=== PATIENT | male | born 1995 | race Caucasian/White ===

== ENCOUNTER 2017-04-18 11:58 | Inpatient (IN) | payer OTHER ==
[~2017-04-18] VITALS: Ht 180.3 cm; Wt 95.3 kg
[2017-04-18 12:56] LABS: BASOPHILS 0.1 % (0-2); EOSINOPHILS 0.6 % (0-7); HEMATOCRIT 47.3 % (42.0-54.0); HEMOGLOBIN 16.9 g/dL (13.5-17.5); IMMATURE GRANULOCYTES 0.3 % (0-5); LYMPHOCYTES 15.1 % (15-50); MCH 31.8 pg (26.0-34.0); MCHC 35.7 g/dL (31.0-37.0); MCV 89.1 fL (80.0-100.0); MEAN PLATELET VOLUME 10.5 fL (7.4-10.4); MONOCYTES 9.3 % (2-11); NEUTROPHILS 74.6 % (40-80); PLATELET COUNT 285 10x3/uL (130-400); RBC 5.31 10x6/uL (4.20-6.10); RDW 12.2 % (11.5-14.5); WBC 11.7 10x3/uL (4.8-10.8)
[2017-04-18 13:09] LABS: ALKALINE PHOSPHATASE 55 U/L (46-116); ALT (SGPT) 48 U/L (10-68); AMYLASE - SERUM 62 U/L (25-115); BILIRUBIN - TOTAL 1.09 mg/dL (0.2-1.3); CALC OSMOLALITY 276 mosm/kg (275-300); CALCIUM 9.3 mg/dL (8.5-10.1); CARBON DIOXIDE 25.8 mmol/L (21.0-32.0); CHLORIDE - SERUM 104 mmol/L (98-107); GLUCOSE 102 mg/dL (74-106); LIPASE 196 U/L (73-393); POTASSIUM - SERUM 4.1 mmol/L (3.5-5.1); PROTEIN - SERUM 7.6 g/dL (6.4-8.2); SODIUM 139 mmol/L (136-145); UREA NITROGEN 9 mg/dL (7-18); eGFR NON AFRICAN AMERICAN > 90 mL/min (90-120)
[2017-04-18 15:38] LABS: APPEARANCE CLEAR (CLEAR); BILIRUBIN 1+ (NEGATIVE); COLOR YELLOW (YELLOW); GLUCOSE NEGATIVE (NEGATIVE); KETONE NEGATIVE (NEGATIVE); LEUKOCYTE ESTERASE NEGATIVE (NEGATIVE); NITRITE NEGATIVE (NEGATIVE); PROTEIN NEGATIVE (NEGATIVE); SPECIFIC GRAVITY 1.015 (1.005-1.020); UROBILINOGEN NORMAL (NORMAL)
[2017-04-18 15:45] LABS: UDS - AMPHET NEGATIVE QUAL (NEGATIVE); UDS - BARB NEGATIVE QUAL (NEGATIVE); UDS - BENZO NEGATIVE QUAL (NEGATIVE); UDS - COCAINE NEGATIVE QUAL (NEGATIVE); UDS - METH NEGATIVE QUAL (NEGATIVE); UDS - OPIATE NEGATIVE QUAL (NEGATIVE); UDS - PCP NEGATIVE QUAL (NEGATIVE); UDS - THC NEGATIVE QUAL (NEGATIVE)
[2017-04-18 18:32] VITALS: BP 148/78; BMI 29.3
--- NOTE | 2017-04-18 19:30 | NUR ---
PT SITTING UP IN BED, ASSESSMENT COMPLETED, NGT TO R NARE AT LIT, L AC IV IN FUSING, NO ACUTE DISTRESS NOTED, VISITOR AT BEDSIDE, SR'S UP, CL IN REACH, WILL MONITOR
[2017-04-18 20:00] VITALS: BP 136/72
--- NOTE | 2017-04-18 22:38 | NUR ---
PT RETURNED FROM VQ SCAN, NO ACUTE DISTRESS NOTED, FALL PRECAUTIONS IN PLACE, CL IN REACH
--- NOTE | 2017-04-18 23:34 | NUR ---
PRN ZOFRAN GIVEN PER REQUEST, YOUSUF WELL, NG TUBE SECURED WITH SILK TAPE, DENIES FURTHER NEEDS, CL IN REACH, VISITOR IN ROOM
[2017-04-18 23:37] VITALS: BP 133/73
--- NOTE | 2017-04-19 01:22 | NUR ---
RESTING WITH EYES CLOSED, RESP WITH EASE, HOB ELEVATED, FALL PRECAUTIONS IN PLACE, CL IN REACH
[2017-04-19 03:54] VITALS: BP 128/76
[2017-04-19 07:33] LABS: BASOPHILS 0.1 % (0-2); EOSINOPHILS 0.4 % (0-7); HEMATOCRIT 43.7 % (42.0-54.0); HEMOGLOBIN 15.3 g/dL (13.5-17.5); IMMATURE GRANULOCYTES 0.3 % (0-5); LYMPHOCYTES 14.1 % (15-50); MCH 31.7 pg (26.0-34.0); MCV 90.7 fL (80.0-100.0); MEAN PLATELET VOLUME 10.6 fL (7.4-10.4); MONOCYTES 9.8 % (2-11); NEUTROPHILS 75.3 % (40-80); PLATELET COUNT 256 10x3/uL (130-400); RBC 4.82 10x6/uL (4.20-6.10); RDW 12.2 % (11.5-14.5)
[2017-04-19 07:45] LABS: ALBUMIN 3.5 g/dL (3.4-5.0); ALKALINE PHOSPHATASE 45 U/L (46-116); ALT (SGPT) 42 U/L (10-68); BILIRUBIN - TOTAL 1.19 mg/dL (0.2-1.3); CALC OSMOLALITY 282 mosm/kg (275-300); CALCIUM 8.7 mg/dL (8.5-10.1); CARBON DIOXIDE 27.8 mmol/L (21.0-32.0); CHLORIDE - SERUM 107 mmol/L (98-107); GLUCOSE 93 mg/dL (74-106); MAGNESIUM - SERUM 1.7 mg/dL (1.8-2.4); PHOSPHOROUS 3.2 mg/dL (2.5-4.9); POTASSIUM - SERUM 4.2 mmol/L (3.5-5.1); PROTEIN - SERUM 6.8 g/dL (6.4-8.2); SODIUM 143 mmol/L (136-145); eGFR NON AFRICAN AMERICAN > 90 mL/min (90-120)
[2017-04-19 07:46] LABS: UREA NITROGEN 6 mg/dL (7-18)
--- NOTE | 2017-04-19 07:50 | NUR ---
AWAKE AND ALERT AT THIS TIME. NG TUBE TO RIGHT NARE PATENT WITH DARK, BROWN/BLACK DRAINAGE. DENIES NAUSEA AT THIS TIME. C/O THROAT BEING SORE D/T NG TUBE. DENIES FURTHER NEEDS AT THIS TIME. ASSESSMENT PERFORMED PER FLOWSHEET. CALL LIGHT IN REACH, WILL CONTINUE WITH PLAN OF CARE.
--- NOTE | 2017-04-19 08:34 | NUR ---
PT CONTINUES TO VOMIT AROUND NG TUBE AT THIS TIME. NG TUBE CHECKED FOR PLACEMENT WITH 20ML AIR ADMINISTRATION WHICH WAS ASCULTATED IN THE STOMACH. NG TUBE SECURED AND REMAINS AT BEDSIDE. PRN ZOFRAN ADMINISTERED FOR NAUSEA.
[2017-04-19 08:59] VITALS: BP 124/64
--- NOTE | 2017-04-19 11:00 | NUR ---
PT VOICED THAT HE HAD NOT VOIDED SINCE 1AM. BLADDER SCAN REVEALED 932 ML OF URINE IN THE BLADDER. NG TUBE CLAMPED AND PT ASSISTED UP TO STANDING POSITION IN BATHROOM TO ATTEMPT VOID. PT VOIDED 925ML OF DARK, YELLOW URINE INTO URINAL AT THIS TIME. ASSISTED BACK TO BED WITH CALL LIGHT IN REACH. WILL CONTINUE WITH PLAN OF CARE.
[2017-04-19 13:24] VITALS: BP 126/64
[2017-04-19 15:34] VITALS: BP 138/65
--- NOTE | 2017-04-19 19:35 | NUR ---
RECIEVED SHIFT REPORT. PT IS LING IN BED. ALERT AND ORIENTED AND ABLE TO VERBALIZE NEEDS. IV IS PATENT AND FLUIDS ARE RUNNING PER ORDER. NGT TO RIGHT NARE PATENT AND CONNECTED TO LIWS. PT IS AMBULATORY WITH ASSISTANCE. 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 NO NEEDS ARE VERBALIZED AT THIS TIME. WILL CONTINUE TO MONITOR. VISITORS AT THE BEDSIDE. SIDE RAILS ARE UP X 2. BED IS IN LOWEST POSITION. CALL LIGHT IS WITHIN REACH.
[2017-04-19 20:00] VITALS: BP 131/75
--- NOTE | 2017-04-19 21:07 | NUR ---
SHIFT ASSESSMENT COMPLETED. PT STATUS REMAINS UNCHANGED FROM PREVIOUS. WILL MONITOR. VISITORS AT BEDSIDE. SIDE RAILS X 2. BED LOW. CALL LIGHT IN REACH.
[2017-04-20 04:00] VITALS: BP 136/70
[2017-04-20 04:39] LABS: BASOPHILS 0.1 % (0-2); EOSINOPHILS 1.5 % (0-7); HEMATOCRIT 41.9 % (42.0-54.0); HEMOGLOBIN 14.7 g/dL (13.5-17.5); IMMATURE GRANULOCYTES 0.2 % (0-5); LYMPHOCYTES 18.1 % (15-50); MCH 31.7 pg (26.0-34.0); MCHC 35.1 g/dL (31.0-37.0); MCV 90.3 fL (80.0-100.0); MEAN PLATELET VOLUME 10.2 fL (7.4-10.4); MONOCYTES 11.1 % (2-11); PLATELET COUNT 238 10x3/uL (130-400); RBC 4.64 10x6/uL (4.20-6.10); RDW 12.1 % (11.5-14.5); WBC 10.1 10x3/uL (4.8-10.8)
[2017-04-20 05:02] LABS: ALBUMIN 3.5 g/dL (3.4-5.0); ALKALINE PHOSPHATASE 40 U/L (46-116); ALT (SGPT) 37 U/L (10-68); CALCIUM 8.5 mg/dL (8.5-10.1); CARBON DIOXIDE 25.4 mmol/L (21.0-32.0); CHLORIDE - SERUM 105 mmol/L (98-107); GLUCOSE 80 mg/dL (74-106); PROTEIN - SERUM 6.8 g/dL (6.4-8.2); SODIUM 141 mmol/L (136-145)
[2017-04-20 05:03] LABS: CALC OSMOLALITY 276 mosm/kg (275-300); CREATININE - SERUM 0.7 mg/dL (0.6-1.3); POTASSIUM - SERUM 3.4 mmol/L (3.5-5.1); UREA NITROGEN 4 mg/dL (7-18); eGFR NON AFRICAN AMERICAN > 90 mL/min (90-120)
[2017-04-20 07:45] VITALS: BP 135/77
--- NOTE | 2017-04-20 07:45 | NUR ---
PT AOX4 RESP EVEN AND NONLABORED PT DENIES NEEDS AT THIS TIME IV TO LEFT AC PATENT AND INTACT AT THIS TIME SRX2 BED AT LOWEST SETTING CALL LIGHT WITHIN REACH WILL CONTINUE TO MONITOR
[2017-04-20 11:38] VITALS: BP 144/76
--- NOTE | 2017-04-20 13:08 | NUR ---
Patient Name: LIZZY FERRELL Admission Status: ER Accout number: [id number] Admission Date: 04-18-2017 : 1995 Admission Diagnosis: Attending: ALEXANDER Current LOS: 2 Anticipated DC Date: 04-22-2017 Planned Disposition: Home [facility] Discharge Planning Comments: CM MET WITH PATIENT REGARDING D/C NEEDS AND PLANS. PATIENT STATED HE LIVES WITH HIS (GRIFFIN) AND SHE WILL DRIVE HIM HOME AT DISCHARGE. PATIENT HAS NO STEPS OR STAIRS AT HIS HOME. PATIENT STATED HE IS INDEPENDENT WITH HIS CARE AND HAS NO DME AT HOME. PATIENTS PCP IS DR. PRICE AND PHARMACY IS [facility] IN [place]. PATIENT HAS NEVER HAD HOME HEALTH AND DOES NOT WANT IT AT THIS TIME. CM WILL CONTINUE TO FOLLOW PATIENT WITH D/C NEEDS AND PLANS. PCP DR. PRICE [facility] IN [place]- [phone] GRIFFIN () [phone] [employer]ning Machine Feeder: Maira Awan Is the patient Alert and Oriented? Yes 0 * How many steps to enter\exit or inside your home? 0 0 * PCP DR. PRICE 0 * Pharmacy [facility] IN [place] 0 * Preadmission Environment Home with Family 0 * ADLs Independent 0 * Equipment None 0 * List name and contact numbers for known caregivers / representatives who currently or will assist patient after discharge: GRIFFIN () [phone] 0 * Community resources currently utilized None 0 * Additional services required to return to the preadmission environment? Yes 0 * Can the patient safely return to the preadmission environment? Yes 0 * Has this patient been hospitalized within the prior 30 days at any hospital? No 0 Grand Total: 0
[2017-04-20 13:29] VITALS: Ht 180.3 cm; Wt 95.3 kg
[2017-04-20 15:46] VITALS: BP 121/54
--- NOTE | 2017-04-20 17:01 | NUR ---
NGT DISCONTINUED WITHOUT DIFFICULTY AT THIS TIME PT TOLERATED WITHOUT COMPLAINTS AT THIS TIME
[2017-04-20 18:19] LABS: ERYTHROCYTE SEDIMENTATION RATE 1 mm/hr (0-15)
[2017-04-20 20:00] VITALS: BP 118/60
[2017-04-21] VITALS: BP 114/62
--- NOTE | 2017-04-21 02:00 | NUR ---
PATIENT DRANK HALF OF THE JUG OF GOLYTLEY PATIENT STATED "I KNOW I NEED TO DRINK IT BUT I JUST CANNOT GET ANYMORE DOWN. MY STOOL IS NOT CLEAR BUT IT IS MORE CLEAR THEN WHEN I STARTED."
[2017-04-21 04:00] VITALS: BP 108/80
[2017-04-21 04:58] LABS: BASOPHILS 0 % (0-2); EOSINOPHILS 0 % (0-7); HEMATOCRIT 39.4 % (42.0-54.0); HEMOGLOBIN 14.1 g/dL (13.5-17.5); IMMATURE GRANULOCYTES 0.2 % (0-5); LYMPHOCYTES 4.7 % (15-50); MCH 31.6 pg (26.0-34.0); MCHC 35.8 g/dL (31.0-37.0); MEAN PLATELET VOLUME 10.8 fL (7.4-10.4); NEUTROPHILS 93.1 % (40-80); PLATELET COUNT 285 10x3/uL (130-400); RBC 4.46 10x6/uL (4.20-6.10); RDW 11.9 % (11.5-14.5); WBC 12.3 10x3/uL (4.8-10.8)
[2017-04-21 05:02] LABS: MCV 88.3 fL (80.0-100.0)
[2017-04-21 05:20] LABS: ALBUMIN 3.4 g/dL (3.4-5.0); ALKALINE PHOSPHATASE 45 U/L (46-116); BILIRUBIN - TOTAL 1.19 mg/dL (0.2-1.3); CARBON DIOXIDE 24.8 mmol/L (21.0-32.0); CHLORIDE - SERUM 107 mmol/L (98-107); CREATININE - SERUM 0.8 mg/dL (0.6-1.3); POTASSIUM - SERUM 3.7 mmol/L (3.5-5.1); PROTEIN - SERUM 6.9 g/dL (6.4-8.2); SODIUM 142 mmol/L (136-145); eGFR NON AFRICAN AMERICAN > 90 mL/min (90-120)
[2017-04-21 05:23] LABS: ALT (SGPT) 96 U/L (10-68); CALC OSMOLALITY 283 mosm/kg (275-300); GLUCOSE 150 mg/dL (74-106); UREA NITROGEN 7 mg/dL (7-18)
[2017-04-21] MEDS ORDERED: ZOLOFT50 MG PO (06:18)
[2017-04-21 06:33] LABS: ERYTHROCYTE SEDIMENTATION RATE 20 mm/hr (0-15)
[2017-04-21 09:05] VITALS: BP 114/68
[2017-04-21 11:37] VITALS: BP 118/70
--- NOTE | 2017-04-21 19:45 | NUR ---
PATIENT IS IN BED, FAMILY AND FRIENDS AT BEDSIDE. PATIENT HAD SMALL, 30ML OF LIQUID BOWEL MOVEMENT PRESENT IN BEDPAN. THE STOOL IS LIGHT BROWN AND APPEARS TO BE MUCOUSY. PATIENT DENIES NEEDS AT THIS TIME. NO SIGNS OF DISTRESS NOTED. BED IN LOWEST POSITION, CALL LIGHT IN REACH. BED RIALS UP X'S 2.
[2017-04-21 20:00] VITALS: BP 112/59
[2017-04-22] VITALS: BP 98/48
[2017-04-22 04:00] VITALS: BP 102/66
[2017-04-22 05:10] LABS: BASOPHILS 0 % (0-2); EOSINOPHILS 0 % (0-7); HEMATOCRIT 37.9 % (42.0-54.0); HEMOGLOBIN 13.4 g/dL (13.5-17.5); IMMATURE GRANULOCYTES 0.5 % (0-5); LYMPHOCYTES 4.5 % (15-50); MCH 31.4 pg (26.0-34.0); MCHC 35.4 g/dL (31.0-37.0); MCV 88.8 fL (80.0-100.0); MEAN PLATELET VOLUME 10.6 fL (7.4-10.4); MONOCYTES 5.4 % (2-11); NEUTROPHILS 89.6 % (40-80); PLATELET COUNT 277 10x3/uL (130-400); RBC 4.27 10x6/uL (4.20-6.10)
[2017-04-22 05:12] LABS: WBC 15.7 10x3/uL (4.8-10.8)
[2017-04-22 05:17] LABS: CALC OSMOLALITY 290 mosm/kg (275-300); CALCIUM 8.6 mg/dL (8.5-10.1); CHLORIDE - SERUM 111 mmol/L (98-107); CREATININE - SERUM 0.7 mg/dL (0.6-1.3); GLUCOSE 142 mg/dL (74-106); POTASSIUM - SERUM 3.8 mmol/L (3.5-5.1); SODIUM 146 mmol/L (136-145); UREA NITROGEN 8 mg/dL (7-18); eGFR NON AFRICAN AMERICAN > 90 mL/min (90-120)
[2017-04-22] MEDS ORDERED: CIPRO500 MG PO (07:09)
[2017-04-22] MEDS ORDERED: FLAGYL500 MG PO (07:10)
[2017-04-22] MEDS ORDERED: MEDROL DOSE PACK4 MG PO (07:11)
--- NOTE | 2017-04-22 07:35 | NUR ---
PT AOX4 RESP EVEN AND NONLABORED PT DENIES NEEDS AT THIS TIME IV TO LEFT HAND PATENT AND INTACT AT THIS TIME SRX2 BED AT LOWEST SETTING CALL LIGHT WITHIN REACH WILL CONTINUE TO MONITOR
[2017-04-22 08:10] VITALS: BP 128/62
--- NOTE | 2017-04-22 08:29 | NUR ---
CM REASSESSMENT NOTE: PATIENT IS DISCHARGING HOME TODAY. PATIENT DID NOT WANT HOME HEALTH AND HAD NO OTHER NEEDS AT THIS TIME. PATIENTS IS DRIVING HIM HOME AT DISCHARGE.
--- NOTE | 2017-04-22 10:05 | NUR ---
IV DISCONTINUED WITH CATHETER INTACT AT THIS TIME PT GIVEN DISCHARGE INSTRUCTIONS AT THIS TIME
--- NOTE | 2017-04-22 10:29 | NUR ---
PT AND SPOUSE AMBULATED TO FRONT ENTRANCE AND LEFT VIA WHEELCHAIR AT THIS TIME
--- NOTE | 2017-04-22 16:52 | OP ---
PATIENT NAME: LIZZY FERRELL MEDICAL RECORD: [id number] :[birth year] LOCATION:[id number] ADMISSION DATE:04/18/17 SURGEON: TA DICK DO OPERATION DATE: 04/21/17 PROCEDURE: Colonoscopy with snare polypectomy and biopsies. INDICATION: Abnormal imaging consisting of thickening of the ileum to the terminal ileum on CT scan. SCOPE: Olympus video pediatric colonoscope. MEDICATIONS: Propofol 600 milligrams IV per anesthesia. WITHDRAWAL TIME: Greater than 15 minutes. ESTIMATED BLOOD LOSS: Minimal. COMPLICATIONS: None. FINDINGS: Informed consent was given. The patient was made comfortable with the above medication. After reaching an adequate level of sedation by slow IV push, the patient was placed on his left side. A digital rectal examination was performed and was normal. The endoscope was then advanced under direct visualization through the rectum to the ileum with advancement of the endoscope approximately 30-40 centimeters into the ileum. The scope was slowly withdrawn, and the mucosa was carefully examined. In the ileum, there was some granularity and erythema consistent with possible ileitis. There were no ulcerations, erosions, changes in vascular pattern, or other changes consistent with Crohn's disease or any other pathology visualized within the ileum. Biopsies were taken with cold forceps to submit for histology. In the ascending colon, there was a single benign appearing sessile polyp measuring approximately 4-5 millimeters in diameter which was removed using a snare cautery polypectomy. Retroflexion was performed in the rectum with a normal appearing mucosal pattern without hemorrhoids. There were no other findings on this examination. The scope was completely withdrawn from the patient. The patient tolerated the procedure well, and there were no complications. IMPRESSIONS: 1. Granularity and erythema in the ileum consistent with possible ileitis, biopsies taken. 2. A single, benign appearing, sessile polyp in the ascending colon which was removed using snare cautery. PLAN/RECOMMENDATIONS: 1. Return to floor. 2. Continue current medications. 3. Resume regular diet. 4. Await biomarker panel to help determine if this inflammatory bowel disease or not. 5. We will adjust medications pending results of those studies. 6. Await biopsy results. 7. Further recommendations to follow. 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
== END 2017-04-22 10:30 | disposition home or self-care (01) | DRG 378 ==
LOC: D.ER 11:58 → D.MS 16:36
PROVIDERS: Family Medicine; Internal Medicine Gastroenterology; Nurse Practitioner Family; Surgery; ADMIT Family Medicine
PROC: 0D9670Z Drainage of Stomach with Drainage Device, Via Natural or Artificial Opening (ICD-10-PCS; 2017-04-18)
PROC: 0DBB8ZX Excision of Ileum, Via Natural or Artificial Opening Endoscopic, Diagnostic (ICD-10-PCS; 2017-04-21)
PROC: 0DBK8ZZ Excision of Ascending Colon, Via Natural or Artificial Opening Endoscopic (ICD-10-PCS; principal; 2017-04-21 14:00)
DX: K92.1 Melena (principal); K56.60 Unspecified intestinal obstruction; D12.2 Benign neoplasm of ascending colon

== ENCOUNTER 2017-06-06 00:08 | Emergency (ER) | payer OTHER ==
[2017-04-20 13:29] VITALS: BMI 29.3
[~2017-06-06 00:08] MED LIST: CIPRO500 MG PO; FLAGYL500 MG PO; MEDROL DOSE PACK4 MG PO; ZOLOFT50 MG PO
[2017-06-06 00:34] LABS: BASOPHILS 0.1 % (0-2); EOSINOPHILS 0.7 % (0-7); HEMATOCRIT 47.9 % (42.0-54.0); HEMOGLOBIN 16.8 g/dL (13.5-17.5); IMMATURE GRANULOCYTES 0.3 % (0-5); LYMPHOCYTES 16.4 % (15-50); MCH 31.4 pg (26.0-34.0); MCHC 35.1 g/dL (31.0-37.0); MCV 89.5 fL (80.0-100.0); MEAN PLATELET VOLUME 10.3 fL (7.4-10.4); MONOCYTES 8.9 % (2-11); NEUTROPHILS 73.6 % (40-80); PLATELET COUNT 289 10x3/uL (130-400); RBC 5.35 10x6/uL (4.20-6.10); RDW 12.3 % (11.5-14.5); WBC 18.4 10x3/uL (4.8-10.8)
[2017-06-06 00:46] LABS: ALBUMIN 4.3 g/dL (3.4-5.0); ALKALINE PHOSPHATASE 50 U/L (46-116); ALT (SGPT) 60 U/L (10-68); CALC OSMOLALITY 278 mosm/kg (275-300); CALCIUM 9.2 mg/dL (8.5-10.1); CARBON DIOXIDE 25.4 mmol/L (21.0-32.0); CHLORIDE - SERUM 103 mmol/L (98-107); CREATININE - SERUM 1.1 mg/dL (0.6-1.3); GLUCOSE 119 mg/dL (74-106); LIPASE 140 U/L (73-393); POTASSIUM - SERUM 3.8 mmol/L (3.5-5.1); PROTEIN - SERUM 7.5 g/dL (6.4-8.2); SODIUM 139 mmol/L (136-145); UREA NITROGEN 12 mg/dL (7-18); eGFR NON AFRICAN AMERICAN 87 mL/min (90-120)
[2017-06-06 04:07] LABS: APPEARANCE CLEAR (CLEAR); BILIRUBIN NEGATIVE (NEGATIVE); COLOR YELLOW (YELLOW); GLUCOSE NEGATIVE (NEGATIVE); KETONE NEGATIVE (NEGATIVE); LEUKOCYTE ESTERASE NEGATIVE (NEGATIVE); NITRITE NEGATIVE (NEGATIVE); PROTEIN NEGATIVE (NEGATIVE); SPECIFIC GRAVITY 1.015 (1.005-1.020); UROBILINOGEN NORMAL (NORMAL)
== END 2017-06-06 05:10 | disposition home or self-care (01) ==
LOC: D.ER 00:08
PROVIDERS: Emergency Medicine
DX: K52.9 Noninfective gastroenteritis and colitis, unspecified (principal); F41.9 Anxiety disorder, unspecified